=== PATIENT | male | born 1965 | race African-American/Black ===

== ENCOUNTER 2017-12-22 19:00 | Emergency (ER) | payer SELFPAY ==
[~2017-12-22] VITALS: Ht 188 cm; Wt 95.3 kg
[2017-12-22 19:11] VITALS: BP 138/74
[2017-12-22] MEDS ORDERED: TETRACAINE 0.5% OPHTH SOLUTION 4ML BOTTLE. OS ONE (19:45)
[2017-12-22] MEDS ORDERED: FLUORESCEIN OPHTH TEST STRIP. OS ONE (19:45)
[2017-12-22] MEDS ORDERED: HYDR-971 PO (20:22)
[2017-12-22] MEDS ORDERED: ERYT1OIN6 OP (20:22)
--- NOTE | 2017-12-22 20:22 | PHYS DOC ---
Past Medical History Past Medical History: Diabetes-Type II, Hypertension Past Surgical History: No Surgical History Alcohol Use: Heavy Additional Information: drinks a pint every other day Drug Use: Marijuana Adult General Chief Complaint Chief Complaint: EYE PROBLEMS HPI HPI Patient is a 52 year old male who presents with sending night he felt there was something in his left eye so he was rubbing his left eye and Wednesday morning he woke up and the conjunctivae are was reddened and there has been some discharge to the eye. Patient states it does not hurt to but will hurts if he is looking into the treatment coordinator trying to strain to look at something. He denies any current injury. Patient states he doesn't have a fever. Patient does have a history of diabetes, hypertension, high cholesterol. His no known drug allergies. Rates his pain 3 out of 10. Review of Systems Review of Systems Constitutional: Denies fever or chills [] Eyes: Denies change in visual acuity. Left eye redness, eye pain, left eye photophobia [] HENT: Denies nasal congestion or sore throat [] Respiratory: Denies cough or shortness of breath [] Cardiovascular: No additional information not addressed in HPI [] GI: Denies abdominal pain, nausea, vomiting, bloody stools or diarrhea [] : Denies dysuria or hematuria [] Musculoskeletal: Denies back pain or joint pain [] Integument: Denies rash or skin lesions [] Neurologic: Denies headache, focal weakness or sensory changes [] Endocrine: Denies polyuria or polydipsia [] All other systems were reviewed and found to be within normal limits, except as documented in this note. Current Medications Current Medications Current Medications Medications (Trade) Dose Ordered Sig/Angel Start Time Stop Time Status Last Admin Dose Admin Fluorescein Sodium (Ful-Yasmine) 1 strip 1X ONCE 12/22/17 19:45 12/22/17 19:46 DC 12/22/17 19:53 1 STRIP Tetracaine HCl (Tetracaine) 1 drop 1X ONCE 12/22/17 19:45 12/22/17 19:46 DC 12/22/17 19:53 1 DROP Allergies Allergies Allergies Coded Allergies Type Severity Reaction Last Updated Verified No Known Drug Allergies 12/22/17 No Physical Exam Physical Exam Constitutional: Well developed, well nourished, no acute distress, non-toxic appearance. [] HENT: Normocephalic, atraumatic, bilateral external ears normal, oropharynx moist, no oral exudates, nose normal. [] Eyes: PERRLA, EOMI, conjunctiva red, clear discharge, corneal abrasion. [] Neck: Normal range of motion, no tenderness, supple, no stridor. [] Cardiovascular:Heart rate regular rhythm, no murmur [] Lungs & Thorax: Bilateral breath sounds clear to auscultation [] Abdomen: Bowel sounds normal, soft, no tenderness, no masses, no pulsatile masses. [] Skin: Warm, dry, no erythema, no rash. [] Back: No tenderness, no CVA tenderness. [] Extremities: No tenderness, no cyanosis, no clubbing, ROM intact, no edema. [] Neurologic: Alert and oriented X 3, normal motor function, normal sensory function, no focal deficits noted. [] Psychologic: Affect normal, judgement normal, mood normal. [] Current Patient Data Vital Signs Vital Signs Date Time Temp Pulse Resp B/P (MAP) Pulse Ox O2 Delivery O2 Flow Rate FiO2 12/22/17 19:11 98.7 120 20 138/74 (95) 99 Room Air 98.7 EKG EKG [] Radiology/Procedures Radiology/Procedures [] Course & Med Decision Making Course & Med Decision Making []Patient is a 52 year old male who presents with sending night he felt there was something in his left eye so he was rubbing his left eye and Wednesday morning he woke up and the conjunctivae are was reddened and there has been some discharge to the eye. Patient states it does not hurt to but will hurts if he is looking into the treatment coordinator trying to strain to look at something. He denies any current injury. Patient states he doesn't have a fever. Patient does have a history of diabetes, hypertension, high cholesterol. His no known drug allergies. Rates his pain 3 out of 10. Left eye conjunctivae is reddened on the outer eye with a hemorrhage. I is numbed with tetracaine and a fluorescein strip is used. There is a abrasion to the 7 o'clock area of the eye. There are no foreign objects seen. I also had Dr. Marshall look at the patient's eye and he agrees that there is a corneal abrasion and no foreign body. Acuities are both eyes are 20/40, left eye 20/50, right eye 20/50. Patient will follow-up with ophthalmology within the next couple of days. Given prescription for erythromycin ointment and [place] for pain. Patient is stable and in no distress. Dragon Disclaimer Dragon Disclaimer This electronic medical record was generated, in whole or in part, using a voice recognition dictation system. Departure Departure Impression: Primary Impression: Corneal abrasion Disposition: HOME, SELF-CARE Condition: STABLE Referrals: UNKNOWN PCP NAME (PCP) Patient Instructions: Eye - Corneal Abrasion Additional Instructions: Follow up with Ophthalmology within the next 5 days. Take medication as prescribed. Scripts Hydrocodone/Apap 5-325 (NORCO 5-325 TABLET) 1 Each Tablet 1 TAB PO PRN Q6HRS PRN for PAIN, #10 TAB 0 Refills Prov: KAMRYN GONZALEZ APRN 12/22/17 Erythromycin Base (Erythromycin) 1 Gm Oint...g. 1 GM OP Q4HRS for 7 Days, MISC Prov: KAMRYN GONZALEZ APRN 12/22/17 Problem Qualifiers Primary Impression: Corneal abrasion Encounter type: initial encounter Laterality: left Qualified Codes: S05.02XA - Injury of conjunctiva and corneal abrasion without foreign body, left eye, initial encounter KAMRYN GONZALEZ APRN Dec 22, 2017 20:22
== END 2017-12-22 20:52 | disposition home or self-care (01) ==
LOC: ER 19:00
DX: S05.02XA Injury of conjunctiva and corneal abrasion without foreign body, left eye, initial encounter (principal); E11.9 Type 2 diabetes mellitus without complications; I10 Essential (primary) hypertension; E78.00 Pure hypercholesterolemia, unspecified; F10.20 Alcohol dependence, uncomplicated; Y90.9 Presence of alcohol in blood, level not specified; X58.XXXA Exposure to other specified factors, initial encounter; Y93.89 Activity, other specified; Y92.89 Other specified places as the place of occurrence of the external cause; Y99.8 Other external cause status
CPT/HCPCS: 99283